=== PATIENT | male | born 1955 | race Caucasian/White ===

== ENCOUNTER 2022-07-10 10:36 | Emergency (ER) | payer MEDICARE, MEDICAID, SELFPAY ==
--- NOTE | ~2022-07-10 | CT_ITS ---
EXAMINATION: CT brain wo con INDICATION: Head injury COMPARISON: 06/05/2016 TECHNIQUE: Standard unenhanced head CT. The dose-length product (DLP) was 681.00 mGy-cm. The mA was a djusted according to patient size. Iterative reconstruction technique was employed. FINDINGS: There is no acute intraparenchymal hemorrhage. No evidence of mass lesion. No evidence of a cute infarction. There is mild periventricular and subcortical hypodensity probably related to small vessel ischemic disease. There is mild prominence of the sulci and ventricles related to cerebral atr ophy. Intracranial calcified cerebral atherosclerosis is noted. There are no extra-axial collections. There is no mass effect or midline shift. There is hemorrhagic opacification of the right maxillary sinus. A comminuted fracture of the right inferior orbital wall is again noted as described in the CT orbit report. 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 IMPRESSION: 1. No acute intracranial abnormality. 2. Age related findings. 3. Findings of right inferior orbital wall fracture as detailed in the CT orbits report. Reviewed, dictated and finalized at location A. IMPRESSION: 1. No acute intracranial abnormality. 2. Age related findings. 3. Findings of right inferior orbital wall fracture as detailed in the CT orbit s report.
--- NOTE | ~2022-07-10 | CT_ITS ---
EXAMINATION: CT orbit BI wo con DATE: 07/10/2022 11:43 INDICATION: Right facial pain, initial encounter TECHNIQUE: Computed tomography (CT) of the orbits was performed without intravenous contrast. The dos e-length product (DLP) was 206.28 mGy-cm. Automated exposure control and iterative reconstruction rl hnique were employed. COMPARISON: None FINDINGS: There is a large amount of maxillary subcutaneous gas anteriorly overlying the right maxill elena sinus. There is a comminuted fracture involving the inferior wall of the right orbit. A small angeline unt of intraorbital gas is present. No muscular entrapment is identified. There is partial hemorrhagi c opacification of the right maxillary sinus. A polyp or mucous retention cyst is present in the left maxillary sinus. No additional facial fracture is identified. IMPRESSION: 1. Comminuted fracture involving the inferior wall the right orbit a small amount of intraorbital gas . Reviewed, dictated and finalized at location A. IMPRESSION: 1. Comminuted fracture involving the inferior wall the right orbit a small amou nt of intraorbital gas.
[2022-07-10 10:41] VITALS: BP 185/77; PULSE 87; RESP 16; TEMP 36.7; O2SAT 100
[2022-07-10] MEDS: HYDROmorphone HCL INJ (*CRX) 1 MG/ML SYR 0.5 MG IV PUSH (12:26)
[2022-07-10] MEDS: MIDAZOLAM HCL (*CRX) 2 MG/2 ML VIAL IV PUSH (12:34)
--- NOTE | 2022-07-10 12:51 | ED.HEATRA ---
HPI - Head Injury General Chief complaint: Head Injury Stated complaint: head injury Time Seen by Provider: 07/10/22 11:59 History of Present Illness HPI Narrative: This is a 66-year-old male with past history of cataract surgery, who presents the emergency department after being struck in the head by a tree branch. He states immediately after the injury, he noticed [id number]-[id number] vision from the right eye and right eye pain rated 6/10. He denies loss of consciousness or other injury. He is not sure when his last tetanus vaccine was given. Related Data Allergies Allergy/AdvReac Type Severity Reaction Status Date / Time No Known Allergies Allergy Unverified 06/05/16 18:59 Review of Systems Review of Systems: CONSTITUTIONAL: Denies fever, chills, or sweats. EYES: Right eye pain and visual change denies discharge. CARDIOVASCULAR: Denies chest pain, palpitations, or edema. RESPIRATORY: Denies cough or dyspnea. GASTROINTESTINAL: Denies abdominal pain, nausea, vomiting, or diarrhea. SKIN: Laceration of the scalp MUSCULOSKELETAL: Denies back pain, joint pain, or myalgia. NEUROLOGIC: Denies headache, numbness, dizziness, or weakness. PSYCHIATRIC: Denies anxiety or depression. [facility] Past Medical History Medical History (Updated 07/12/22 @ 15:04 by Claudio Espinal MD) Cataract Social History Social History (Updated 07/10/22 @ 12:53 by Claudio Espinal MD) Smoking status: Never smoker Alcohol intake: never Substance use: never Exam Narrative: GENERAL: Well-appearing, well-nourished, and in no acute distress. HEAD: Normocephalic, a superficial midline laceration approximately 3 cm of the forehead is noted EYES: Right pupil 4 mm, minimally reactive to light with a visibly dislodged artificial lens. The right eye is unable to superiorly rotate. The patient is able to see the fingers though his color vision appears altered. There are superficial lacerations over the superior eyelid without fat exposure or obvious disruption of the muscle plate. Right inferior lid ecchymosis NECK: Supple. No adenopathy or masses. No carotid bruits or JVD CHEST: Clear to auscultation. No respiratory distress. No wheezes rales or rhonchi HEART: Regular rate and rhythm. No murmur heard. Normal peripheral pulses. ABDOMEN: Soft, nontender, nondistended, normal active bowel sounds. EXTREMITIES: Normal range of motion. No edema. SKIN: Warm, dry, no rash. NEURO: No focal deficits. Alert and oriented x3. PSYCH: Normal mood and affect. Course Course Emergency Course: 12:54 - Contacted [facility] transfer line for ophthalmology consultation. The patient's exam is concerning for globe rupture and entrapment. CT Orbits obtained prior to my examination demonstrated an inferior orbital wall fracture. 13:12 - Discussed patient with [facility] delivery consultant, Dr. Briscoe who accepts transfer to the emergency department. Discussed the patient with [facility] emergency medicine physician, Dr. Nuno who also accepts transfer as a level 3 trauma. Mentations with the patient and his son. They voiced understanding and are comfortable with the plan. All questions answered to their satisfaction. Vital Signs Vital signs: Vital Signs Temperature 98.1 F 07/10/22 10:41 Pulse Rate 87 07/10/22 10:41 Respiratory Rate 16 07/10/22 10:41 Blood Pressure 185/77 H 07/10/22 10:41 Pulse Oximetry 100 07/10/22 10:41 Temperature 98.1 F 07/10/22 10:41 Pulse Rate 87 07/10/22 10:41 Respiratory Rate 16 07/10/22 10:41 Blood Pressure 136/80 07/10/22 14:28 Pulse Oximetry 100 07/10/22 14:30 Transfer Transfered to: [facility] Transportation: BLS Transfer rationale: Need for ophthalmology evaluation Accepting physician: Dr. Salvador (ophthalmology), Dr. Nuno (emergency medicine) MDM - Head Injury MDM Narrative Medical decision making narrative: Plan: Pain control, imaging, tetanus vaccination, ophthalmology consultation, reassess D
[2022-07-10] MEDS: TETANUS,DIPHTHERIA,AC PERTUSSIS ADULT (0.5 ML) BOOSTRIX IM (14:19)
[2022-07-10] MEDS: ONDANSETRON INJ 4 MG/2 ML VIAL IV PUSH (14:22)
[2022-07-10] MEDS: HYDROmorphone HCL INJ (*CRX) 1 MG/ML SYR IV PUSH (14:24)
[2022-07-10 14:25] VITALS: O2SAT 100
[2022-07-10 14:28] VITALS: BP 136/80; O2SAT 100
[2022-07-10 14:30] VITALS: O2SAT 100
== END 2022-07-10 14:50 | disposition short-term general hospital (02) ==
PROVIDERS: Emergency Provider Preventive Medicine Aerospace Medicine
DX: S02.31XA Fracture of orbital floor, right side, initial encounter for closed fracture (principal); S01.111A Laceration without foreign body of right eyelid and periocular area, initial encounter; S05.8X1A Other injuries of right eye and orbit, initial encounter; Z23 Encounter for immunization; Z98.49 Cataract extraction status, unspecified eye; W22.8XXA Striking against or struck by other objects, initial encounter
CPT/HCPCS: 70450; 70480; 90471; 90715; 96374; 96375; 96376; 99285; J1170; J2250; J2405